=== PATIENT | female | born 1985 | race Caucasian/White ===

== ENCOUNTER 2018-07-03 17:24 | Inpatient (IN) | payer OTHER ==
[~2018-07-03] VITALS: Ht 158 cm; Wt 78.5 kg
[2018-11-07] MEDS ORDERED: MISOPROSTOL 25 MCG TABLET VG ONE (09:30)
[2018-11-07] MEDS ORDERED: PREN1TAB80 PO (09:30)
[2018-11-07 09:48] VITALS: BP 115/72
[2018-11-07] MEDS ORDERED: OXYTOCIN 30 UNITS/LACT RINGERS 500 ML IV ONE (10:08)
[2018-11-07] MEDS ORDERED: RINGERS SOLUTION,LACTATED 1,000 ML IV PRN (10:08)
[2018-11-07] MEDS ORDERED: METOCLOPRAMIDE HCL 5 MG/ML 2 ML VIAL IVP PRN (10:15)
[2018-11-07] MEDS ORDERED: CITRIC ACID/SODIUM CITRATE 30 ML SOLUTION UDCUP PO PRN (10:15)
[2018-11-07] MEDS ORDERED: METHYLERGONOVINE MALEATE 0.2 MG/ML VIAL IM PRN (10:15)
[2018-11-07] MEDS ORDERED: LIDOCAINE/PF 1% 30 ML VIAL INJ PRN (10:15)
[2018-11-07] MEDS: RINGERS SOLUTION,LACTATED 1,000 ML IV SCH ×3 (10:27→20:04)
[2018-11-07 10:39] LABS: BASOPHILS % (AUTO) 0.7 % (0.0-2.0); EOSINOPHILS % (AUTO) 0.6 % (1.0-6.0); HEMATOCRIT 36.6 % (36-46); HEMOGLOBIN 11.8 g/dL (12.0-16.0); LYMPHOCYTES # (AUTO) 1.7 K/uL (1.0-4.8); LYMPHOCYTES % (AUTO) 21.2 % (22.0-44.0); MEAN CORPUSCULAR HEMOGLOBIN 26.2 pg (26.0-34.0); MEAN CORPUSCULAR HGB CONC 32.3 G/dL (31.0-37.0); MEAN CORPUSCULAR VOLUME 81 fL (80-100); MONOCYTES # (AUTO) 0.6 K/uL (0.1-1.0); MONOCYTES % (AUTO) 7.6 % (2.0-9.0); NEUTROPHILS # (AUTO) 5.6 K/uL (1.8-7.7); NEUTROPHILS % (AUTO) 69.9 % (40.0-70.0); PLATELET COUNT (AUTO)-OB 264 K/uL (150-450); RED BLOOD CELL COUNT(AUTO) 4.53 MIL/uL (4.00-5.20); RED CELL DISTRIBUTION WIDTH 14.7 % (11.5-14.5)
[2018-11-07] MEDS ORDERED: MISOPROSTOL 50 MCG TABLET VG SCH (13:30)
[2018-11-07] MEDS ORDERED: MISOPROSTOL 25 MCG TABLET PO ONE (15:15)
[2018-11-07] MEDS ORDERED: TERBUTALINE SULFATE 1 MG/ML VIAL ONE (17:00)
[2018-11-07] MEDS ORDERED: SODIUM CHLORIDE 0.9% 1,000 ML IV ONE ×2 (17:00→19:00)
[2018-11-07] MEDS: MISOPROSTOL 50 MCG TABLET PO SCH ×2 (18:56→22:58)
[2018-11-07] MEDS ORDERED: OXYGEN THERAPY IH SCH (20:00)
[2018-11-07] MEDS: FentaNYL CITRATE-PF 100 MCG/2 ML VIAL IVP PRN ×4 (20:56→23:08)
[2018-11-08] MEDS: FentaNYL CITRATE-PF 100 MCG/2 ML VIAL IVP PRN ×2 (01:08→01:13)
[2018-11-08] MEDS ORDERED: OXYTOCIN 30 UNITS/LACT RINGERS 500 ML IV ONE (02:30)
[2018-11-08] MEDS ORDERED: ROPIVACAINE HCL/PF 0.2% 100 ML ED ONE (02:31)
[2018-11-08] MEDS ORDERED: ONDANSETRON HCL 4 MG/2 ML VIAL IVP PRN (03:15)
[2018-11-08] MEDS ORDERED: DiphenhydrAMINE HCL 50 MG/ML VIAL IVP PRN (03:15)
[2018-11-08] MEDS ORDERED: NALBUPHINE HCL 10 MG/ML VIAL IVP PRN (03:15)
[2018-11-08] MEDS: MISOPROSTOL 50 MCG TABLET PO SCH (08:51)
[2018-11-08] MEDS ORDERED: AMPICILLIN SODIUM 2 GM/NS 100 ML IV ONE (09:00)
[2018-11-08] MEDS: AMPICILLIN SODIUM 2 GM/NS 100 ML IV SCH ×3 (09:04→20:51)
[2018-11-08] MEDS: ROPIVACAINE HCL/PF 0.2% 100 ML ED PRN ×3 (10:33→23:45)
[2018-11-08] MEDS: RINGERS SOLUTION,LACTATED 1,000 ML IV SCH ×2 (10:34→17:27)
[2018-11-08] MEDS ORDERED: OXYTOCIN 30 UNITS/LACT RINGERS 500 ML IV PRN (10:48)
[2018-11-08] MEDS ORDERED: ACETAMINOPHEN 325 MG TABLET PO ONE (19:00)
[2018-11-09] MEDS: RINGERS SOLUTION,LACTATED 1,000 ML IV SCH (00:45)
[2018-11-09] MEDS ORDERED: OXYTOCIN 30 UNITS/LACT RINGERS 500 ML IV ONE (03:31)
[2018-11-09] MEDS ORDERED: LANOLIN 7 GM OINTMENT TP PRN (03:45)
[2018-11-09] MEDS ORDERED: OxyCODONE HCL/ACETAMINOPHEN 5-325 MG TABLET PO PRN ×2 (03:45)
[2018-11-09] MEDS ORDERED: BENZOCAINE 20%/MENTHOL 56 GM SPRAY CANISTER TP PRN (03:45)
[2018-11-09] MEDS: GLYCERIN/WITCH HAZEL LEAF 40 PADS JAR TP PRN ×2 (04:07→23:29)
[2018-11-09] MEDS: IBUPROFEN 800 MG TABLET PO PRN (04:08)
[2018-11-09] MEDS: MAGNESIUM HYDROXIDE SUSPENSION 30 ML UDCUP PO PRN ×2 (09:24→20:48)
[2018-11-10 06:20] LABS: BASOPHILS % (AUTO) 0.2 % (0.0-2.0); HEMATOCRIT 29.3 % (36-46); HEMOGLOBIN 9.7 g/dL (12.0-16.0); LYMPHOCYTES # (AUTO) 2.2 K/uL (1.0-4.8); LYMPHOCYTES % (AUTO) 17.6 % (22.0-44.0); MEAN CORPUSCULAR HEMOGLOBIN 26.4 pg (26.0-34.0); MEAN CORPUSCULAR HGB CONC 33.1 G/dL (31.0-37.0); MEAN CORPUSCULAR VOLUME 80 fL (80-100); MONOCYTES # (AUTO) 0.9 K/uL (0.1-1.0); MONOCYTES % (AUTO) 7.1 % (2.0-9.0); NEUTROPHILS # (AUTO) 9.4 K/uL (1.8-7.7); NEUTROPHILS % (AUTO) 74.1 % (40.0-70.0); PLATELET COUNT (AUTO)-OB 211 K/uL (150-450); RED BLOOD CELL COUNT(AUTO) 3.67 MIL/uL (4.00-5.20); RED CELL DISTRIBUTION WIDTH 14.9 % (11.5-14.5)
[2018-11-10] MEDS: IBUPROFEN 800 MG TABLET PO PRN (09:03)
[2018-11-10] MEDS: MAGNESIUM HYDROXIDE SUSPENSION 30 ML UDCUP PO PRN (09:04)
[2018-11-10] MEDS ORDERED: IBUP-2071 PO (09:41)
[2018-11-10] MEDS ORDERED: DSS100 PO (09:43)
[2018-11-10] MEDS ORDERED: FERR-89 PO (09:44)
== END 2018-11-10 11:30 | disposition home or self-care (01) | DRG 807 ==
LOC: 4S 11-07 08:00 → OBSVTOIN 11-07 08:00
PROVIDERS: ADMIT Obstetrics & Gynecology; ATTEND Obstetrics & Gynecology
PROC: 0W8NXZZ Division of Female Perineum, External Approach (ICD-10-PCS; principal; 2018-11-09)
PROC: 10D07Z6 Extraction of Products of Conception, Vacuum, Via Natural or Artificial Opening (ICD-10-PCS; 2018-11-09)
PROC: 3E0R3BZ Introduction of Anesthetic Agent into Spinal Canal, Percutaneous Approach (ICD-10-PCS; 2018-11-09)
PROC: 00HU33Z Insertion of Infusion Device into Spinal Canal, Percutaneous Approach (ICD-10-PCS; 2018-11-09)
DX: O77.0 Labor and delivery complicated by meconium in amniotic fluid (principal); Z37.0 Single live birth; O66.5 Attempted application of vacuum extractor and forceps; Z3A.41 41 weeks gestation of pregnancy
CPT/HCPCS: 86850; 86900; 86901; J0290; J2210; J2590; J2795; J3010; J3105; J3490; J7030; J7120